=== PATIENT | female | born 1945 | race Caucasian/White ===

== ENCOUNTER 2016-06-27 06:16 | Inpatient (IN) | payer BC, OTHER ==
[2016-05-07 10:30] VITALS: BMI 42.0
--- NOTE | 2016-05-07 11:12 | PAT Medication Instructions ---
Service Date May 07, 2016. Current Home Medication List Amoxicillin (Amoxil), 500 MG PO TID Aspirin (Aspirin 81), 81 TAB PO QAM Ezetimibe (Zetia), 10 MG PO QAM Glatiramer Acetate (Copaxone), 1 DOSE SQ 3XWK Naproxen (Naprosyn), 500 MG PO BID Ranitidine Hcl (Zantac), 150 MG PO BID [Dr. Daphnie Bowers], 1 PKT PO QAM Medication Instructions For Your Scheduled Surgery Amoxicillin (Amoxil), 500 MG PO TID (will finish prior to surgery) Glatiramer Acetate (Copaxone), 1 DOSE SQ 3XWK (check with neurologist for instructions) Naproxen (Naprosyn), 500 MG PO BID (per Dr. San's instructions) Dr. Daphnie Bowers 1 PKT PO QAM (take as directed) - Take the following medications the morning of surgery with a sip of water: Ranitidine Hcl (Zantac), 150 MG PO BID Ezetimibe (Zetia), 10 MG PO QAM Aspirin (Aspirin 81), 81 TAB PO QAM - Take the following medications as scheduled the night before surgery: Ranitidine Hcl (Zantac), 150 MG PO BID If you have any questions please call us at [phone] or [phone] ( [facility]) or [phone]
[2016-05-07 12:17] LABS: BASO % 0.3 %; BASO ABS # 0.02 K/uL (0-0.2); COMPLETE YES; EOS % 1.3 %; HEMATOCRIT 38.5 % (37-47); IG% 0.1 %; LYMPH % 31.6 %; LYMPH ABS # 2.16 K/uL (1.2-3.4); MEAN CELL VOLUME 86.3 fL (80-100); MEAN CORPUSCULAR HGB CONC 32.5 g/dl (32-36); MEAN PLATELET VOLUME 9.8 fL (7.4-10.4); MONO % 9.5 %; NEUT % 57.2 %; PLATELET COUNT 332 K/uL (130-400); RED BLOOD COUNT 4.46 M/uL (4.2-5.4); WHITE BLOOD COUNT 6.84 K/uL (4.8-10.8)
[2016-05-07 12:32] LABS: PARTIAL THROMBOPLASTIN RATIO 1.1; PROTHROMBIN TIME (PATIENT) 10.5 SECONDS (9.0-12.0)
[2016-05-07 12:34] LABS: URINE APPEARANCE CLEAR (CLEAR); URINE BILIRUBIN NEG (NEG); URINE COLOR YELLOW; URINE NITRITE NEG (NEG); URINE SPECIFIC GRAVITY 1.015 (1.000-1.030); UROBILINOGEN NEG (NEG)
--- NOTE | 2016-05-07 12:35 | DIAGNOSTIC IMAGING REPORT ---
CHEST PREADMISSION(PA/LAT) CLINICAL HISTORY: Preoperative evaluation COMPARISON STUDY: Chest radiograph March 28, 2013 FINDINGS: Lung volumes are normal. Linear left basilar opacity is suggestive of atelectasis. There is a large hiatal hernia. Mild cardiomegaly is noted. There is no evidence of pulmonary edema. There is no consolidation to suggest pneumonia. IMPRESSION: 1. No acute cardiopulmonary findings. 2. Mild cardiomegaly. 3. Moderate to large hiatal hernia. Electronically signed by: Kendall Rodriguez M.D. 05/07/2016 12:34 PM
[2016-05-07 12:40] LABS: MANUAL MICROSCOPIC REQUIRED? NO; REVIEW REQ? NO
[2016-05-07 12:49] LABS: BUN/CREATININE RATIO 16.3 (10-20); CREATININE 0.7 mg/dl (0.60-1.20); POTASSIUM 3.9 mmol/L (3.5-5.1)
[2016-05-07 12:54] LABS: ESTIMATED AVERAGE GLUCOSE 123 mg/dl; HA1C FLAG Normal (Normal)
[2016-05-07 13:36] LABS: CALCIUM 9.6 mg/dl (8.5-10.1)
--- NOTE | 2016-06-24 14:22 | HISTORY & PHYSICAL EXAMINATION ---
DATE OF ADMISSION: 06/27/2016 SUBJECTIVE AND CHIEF COMPLAINT: Left knee pain. HISTORY OF PRESENT ILLNESS: This is a patient who is treated conservatively for left knee osteoarthritis. She failed all conservative management of left knee. She is now being set up for a left total knee arthroplasty. PAST MEDICAL HISTORY: Hypercholesterolemia, multiple sclerosis, osteoarthritis, acid reflux, obesity. SOCIAL HISTORY: The patient denies alcohol and tobacco use. FAMILY HISTORY: Noncontributory. PAST SURGICAL HISTORY: Left and right bunion corrections, umbilical hernia repair, cholecystectomy, and also colonoscopy with a repaired bowel after a puncture during the colonoscopy. ALLERGIES: CRESTOR, ZOCOR, AND LIPITOR. CURRENT MEDICATIONS: Copaxone 20 mg 1 injection subQ daily, [place]-3 fish oil supplement p.o. daily, calcium plus vitamin D supplement 1 p.o. daily, glucosamine chondroitin p.o. daily, aspirin 81 mg p.o. daily, multivitamin p.o. daily, Zantac 150 mg 1 p.o. b.i.d., Zetia p.o. daily and Naprosyn p.o. b.i.d. p.r.n. pain. OBJECTIVE PHYSICAL EXAMINATION: GENERAL: The patient is alert and oriented x3. She is in no acute distress. She is a well-dressed, well-nourished 71-year-old female. Affect is appropriate. CARDIOVASCULAR: Heart has a regular rate without murmurs. LUNGS: Clear to auscultation bilateral. EXTREMITIES: Dorsalis pedis, posterior tib pulse +2/4. Cap refill is less than 2 seconds. LYMPHATIC: No evidence of any swollen lymph nodes. MUSCULOSKELETAL: The patient has a compensated gait favoring the left lower extremity. Upon inspection of the left knee, the patient is noted to have swelling noted of the knee. There is aljp-qs-[id number] effusion. There is no ecchymosis, no erythema noted. There is crepitation with passive and active range of motion. There is also tenderness elicited with range of motion as well as palpation of the medial and lateral joint spaces. She has decrease in strength secondary to pain. SKIN: There are no scars, rashes or ulcers noted. NEUROLOGIC: Sensation normal and intact distally left lower extremity. X-RAY EXAMINATION: Multiple views of the left knee demonstrate severe osteoarthritis of the left knee with subchondral sclerosis and spurring. ASSESSMENT AND DIAGNOSIS: Left knee arthritis. PLAN: Above assessment was discussed with the patient. At this time, it was recommended the patient undergo a left total knee arthroplasty. All potential risks, benefits, complications, alternatives and rehab have been discussed with the patient. At this time, she wishes to proceed with the surgery as indicated. Plan will be for aspirin 81 mg twice per day for 30 days, postoperative DVT prophylaxis. The patient will be scheduled for the surgery on 06/27/2016.
[~2016-06-27] VITALS: Ht 160 cm; Wt 109.1 kg
[2016-06-27] VITALS (7 sets, daily range): BP systolic 103–137; BP diastolic 63–75; PULSE 68–84; TEMP 36.4–36.7; O2SAT 96–99; Ht 160 cm; Wt 109.1 kg
[~2016-06-27 06:16] MED LIST: ACETAMINOPHEN 500 MG TAB PO SCH; AMOX500C3 PO; ASPI-435 PO; CEFAZOLIN 2000 MG/60 ML D5W 60 ML IV SCH; CeleBREX 200 MG CAP PO SCH; DEXAMETHASONE 4 MG TAB PO SCH; EZET10TA63 PO; FAMOTIDINE 20 MG TAB PO SCH; GABAPENTIN 300 MG CAP PO SCH; GLAT1INJ SQ; LACTATED RINGER'S 1000ML IV SCH; LACTATED RINGER'S 500 ML IV SCH; METOCLOPRAMIDE HCL 10 MG TAB PO SCH; NAPR-1169 PO; RANI150T3 PO; ROPIVACAINE 5MG/ML 30 ML 150 MG, BUPIVACAINE/EPINEPHR 0.5% MPF 30 ML, KETOROLAC TROMETH... INFIL SCH; [UNRECOGNIZED DRUG - REMARK] PO
[2016-06-27] MEDS ORDERED: BUPIVACAINE 0.5 % 5 MG/1 ML PF 10ML VIAL ONE (06:26)
[2016-06-27] MEDS ORDERED: ATROPINE SULFATE 0.1 MG/ML 5ML SYR IV PRN (07:00)
[2016-06-27] MEDS ORDERED: FENTANYL CITRATE INJ 50 MCG/1 ML 2 ML VIAL IV PRN (07:00)
[2016-06-27] MEDS ORDERED: EpHEDrine SULFATE INJ 50 MG/ML AMP IV PRN (07:00)
[2016-06-27] MEDS ORDERED: ONDANSETRON INJ 2 MG/ML 2 ML VIAL IV PRN ×2 (07:00→12:00)
[2016-06-27] MEDS ORDERED: FENTANYL CITRATE INJ 50 MCG/1 ML 2 ML VIAL ONE ×3 (07:03→12:01)
[2016-06-27] MEDS ORDERED: DEXAMETHASONE SOD INJ 4 MG/ML VIAL ONE (07:03)
[2016-06-27] MEDS ORDERED: LIDOCAINE HCL 2% 2 ML VIAL (20MG/ML) ONE (07:03)
[2016-06-27] MEDS ORDERED: ONDANSETRON INJ 2 MG/ML 2 ML VIAL ONE (07:03)
[2016-06-27] MEDS ORDERED: PROPOFOL IV EMULSION 10 MG/ML 20 ML VIAL IV ONE (07:03)
[2016-06-27] MEDS ORDERED: MIDAZOLAM HCL 1 MG/ML 2ML VIAL ONE (07:03)
[2016-06-27] MEDS ORDERED: NURSING VERBAL MED ORDER STA (07:24)
--- NOTE | 2016-06-27 07:35 | History & Physical Bridge Note ---
H&P Re-Evaluation Bridge Note: I have examined the patient, reviewed the History & Physical and in the interval since the performance of the History & Physical I have noted the following changes of clinical significance: No changes noted
[2016-06-27] MEDS ORDERED: ORTHO JOINT ANESTHETIC ONE (07:57)
[2016-06-27] MEDS: TRANEXAMIC ACID INJ 1,000 MG in SODIUM CHLORIDE 0.9% 100ML 100 ML IV SCH ×2 (08:37→13:15)
[2016-06-27] MEDS ORDERED: BUPIVACAINE 0.25% 30 ML VIAL ONE (08:52)
[2016-06-27] MEDS ORDERED: BACITRACIN 50000 UNIT VIAL IR ONE (10:22)
[2016-06-27] MEDS ORDERED: POVIDONE-IODINE OP SOLN 30 ML BTL TOP ONE (10:22)
--- NOTE | 2016-06-27 11:24 | [facility] Post Operative Brief Note ---
Immediate Operative Summary Operative Date Jun 27, 2016. Pre-Operative Diagnosis Left knee degenerative joint disease, Genu Valgum, Flexion Contracture, Osteoarthritis Post-Operative Diagnosis Left knee degenerative joint disease, Genu Valgum, Flexion Contracture, Osteoarthritis Procedure(s) Performed Left Total Knee Arthroplasty w/ Alejandra Foreman 2, Cemented Surgeon Dr. Dimas San [employer] Paralegal Surgeon(s) Enrique Pollock PA-C Estimated Blood Loss 20cc Findings See Dict Specimens A: Left knee bone and tissue Drains HV x 2 Anesthesia GLMA w/ Adductor canal block; Intraarticular Joint injection Complication(s) None Disposition Recovery Room / PACU
[2016-06-27] MEDS ORDERED: ZOLPIDEM TARTRATE 5 MG TAB PO PRN (12:00)
[2016-06-27] MEDS ORDERED: MoRPHine SULFATE 2 MG/ML CARP IV PRN (12:00)
[2016-06-27] MEDS ORDERED: DiphenhydrAMINE HCL 50 MG/ML VIAL IV PRN (12:00)
[2016-06-27] MEDS ORDERED: BISACODYL 10 MG SUPP PR PRN (12:00)
[2016-06-27] MEDS ORDERED: ALUMINUM/MAGNESIUM/SIMETH (MAALOX MAX) 30 ML UDC PO PRN (12:00)
--- NOTE | 2016-06-27 12:12 | DIAGNOSTIC IMAGING REPORT ---
LEFT KNEE 2 VIEWS History: Left total knee arthroplasty. Degenerative arthritis. Postop. FINDINGS: The patient is status post a left total knee arthroplasty. The hardware is intact. No fracture or dislocation. Skin nabil and surgical drains are in place. IMPRESSION: Left total knee arthroplasty. No evidence for hardware complication. Electronically signed by: Victorino Mccoy M.D. 06/27/2016 12:11 PM Dictated Date/Time: 06/27/2016 12:10 PM
--- NOTE | 2016-06-27 12:27 | Anesthesiology Progress Note ---
Anesthesia Post Op Note Date & Time Jun 27, 2016 at 12:27 Vital Signs Pain Intensity: 3 Vital Signs Past 12 Hours Date Time Temp Pulse Resp B/P Pulse Ox O2 Delivery O2 Flow Rate FiO2 06/27/16 12:18 136/61 06/27/16 12:16 79 16 98 06/27/16 12:16 78 16 06/27/16 12:13 133/67 06/27/16 12:11 79 16 98 06/27/16 12:11 79 16 06/27/16 12:10 81 16 100 06/27/16 12:10 82 16 06/27/16 12:08 135/68 06/27/16 12:05 74 13 100 06/27/16 12:05 76 13 06/27/16 12:03 143/63 06/27/16 12:00 82 19 100 06/27/16 12:00 84 19 06/27/16 11:58 138/63 06/27/16 11:55 84 14 06/27/16 11:55 84 14 100 06/27/16 11:53 132/65 06/27/16 11:50 37.4 88 18 144/68 98 Mask 10 06/27/16 11:50 89 16 99 06/27/16 11:50 89 16 06/27/16 06:53 36.6 84 20 131/63 96 Room Air Notes Mental Status: alert / awake / arousable, participated in evaluation Pt Amnestic to Procedure: Yes Nausea / Vomiting: adequately controlled Pain: adequately controlled Airway Patency, RR, SpO2: stable & adequate BP & HR: stable & adequate Hydration State: stable & adequate Anesthetic Complications: no major complications apparent
--- NOTE | 2016-06-27 12:59 | OPERATIVE REPORT ---
DATE OF OPERATION: 06/27/2016 PREOPERATIVE DIAGNOSES: 1. Left knee degenerative joint disease. 2. Genu valgum. 3. Flexion contracture of the left knee. POSTOPERATIVE DIAGNOSES: Same. PROCEDURE: Left total knee arthroplasty using a [employer] II knee size 8 femur, size 6 tibial component, 12-mm posterior stabilized polyethylene and a 35-mm patella. SURGEON: Dr. San. ISO COORDINATOR: Enrique SULLIVAN, who was present for patient positioning, sterile prep and drape, management of retractors and instruments. He was present through the critical portions of the case including wound closure, application of sterile dressing and transport of the patient to recovery. ANESTHESIA: General LMA with adductor canal block and intraarticular left knee joint injection. SPECIMENS: Bone and tissue from the left knee. DRAINS: Hemovac x2. COMPLICATIONS: None. BLOOD LOSS: 20 mL. PERTINENT HISTORY: This is a 71-year-old female who had chronic progressive and ongoing left knee pain, degenerative arthritis and loss of function. This has been ongoing for several years. She attempted conservative management including anti-inflammatories, rest, use of a brace, use of an assistive device, shoewear modification, activity modification, steroid injections and viscosupplementation. She failed all measures. She had radiographic features consistent with severe degenerative joint disease with loss of joint space, marginal osteophytes, subchondral sclerosis, subchondral cysts, genu valgum and bone on bone arthropathy. She was scheduled for surgery as indicated. DESCRIPTION OF PROCEDURE: The patient was taken to the Operating Suite and placed supine on the Operating Room table after the patient had been administered spinal anesthetic and femoral nerve block. The patient was anesthetized and LMA was placed . The Proper operative site was identified and the consent was reviewed. The tourniquet was placed high on the left lower extremity. Left lower extremity was then sterilely prepped and draped in the usual fashion. Elevated and exsanguinated with an Esmarch bandage. Tourniquet inflated to 350 mmHg. Next a midline 10-blade scalpel incision was made directly over the middle one-third of the patella extending to the level of the tibial tubercle. The incision was deepened through the subcutaneous tissue and meticulous hemostasis with electrocautery. Full-thickness skin flaps were developed taking care to avoid neurovascular bundles. Next, median parapatellar capsular incision was made 10-blade scalpel after the superior medial corner had been marked with a marking pen for later reapproximation. Next, patella was everted. Soft tissue releases were performed of the knee including along the anterior medial corner to the level of the MCL which was protected and released adjacent to the MCL with Huertas elevator. Fat pad was resected anteriorly and small half muñiz portion of tissue was resected at the superior margin of the dermal articular surface. Next, the patella thickness was measured with caliper and held in everted position with Kevin. Next, sagittal saw was used to make orthogonal cuts to the level of the patellar nose. Caliper was used to remeasure the patella and the appropriate sized patellar button, in this case size 35 mm felt to be most appropriate. The alignment guide was then put in place. Peg holes were drilled and alignment guide was then removed. Next, the femoral cutting block was placed in the distal aspect of the femur and pinned in place. Next the distal femoral cut was made based off the patient's anatomy and MRI patient matched cutting block. Next, a size 8 distal 4-in-1 cutting block was tamped in place then stabilized with pins. Next, the appropriate soft tissue retraction was made and anterior chamfer and posterior chamfer cuts were made with the sagittal saw. Next, the 4-in-1 cutting block was then removed followed by removal of all bone fragments. Next, attention was then directed toward the proximal tibia. Blunt Yara was placed posterior to the tibia to protract it anteriorly and median and lateral sharp Renetta retractors were placed. Soft tissue and portion of the menisci were then resected at this time and MRI matched proximal tibial cutting block was then pinned in place and proximal tibial cut was made with sagittal saw. Alignment guide was removed. Pins were removed and the proximal fragment of the tibia was then sharply excised and removed. Next, proximal tibial tray trial size 6 was then pinned in place and this was felt to be well matched for the patient's anatomy, pinned in place and keel punch was then utilized with balwinder. Keel punch was then removed and cervical laminar care team assistant was then placed in the medial compartment. The lateral compartment was then inspected for osteophytes and soft tissue impingement. There was found to be none. I then switched to the lateral compartment and medial compartment was then debrided of any soft tissue impingement. Next the laminar care team assistant was removed and the femoral trial, in this case size 8 was then malleted in place, pinned and then femoral notch milling guide was then placed anteriorly. This was then reamed and then punched with sharp punch and mallet. Next, the distal aspect of the femur was then inserted in notch guide and size 12-mm poly was inserted, reduced. Patellar button was then placed in trial and range of motion was performed. Next after range of motion and stability test was performed the implants were found to be appropriate size. Trials were all removed. The posterior capsule was injected with Orthomix. Next the joint was then cleansed with pulsatile lavage using approximately 3 liters normal saline with Bacitracin additive. Next all bony surfaces were the suctioned and drained and standard cementing technique was performed with Palacos G cement and all excess cement was then removed from around the implant site. A 12-mm posterior stabilized polyethylene bearing was implanted and checked for stability. The patellar button was then cemented in place and held in place with patellar clamp. Next, double lumen 10 Portuguese Hemovac drain was then placed and exiting anterolaterally and the capsule was closed using interrupted #1 Vicryl sutures. The dermis was closed using buried interrupted 2-0 Vicryl and the skin closed with skin nabil. A sterile compressive dressing was applied from the toes to the groin and overwrapped with Cristobal wrap. Tourniquet was released. The patient was awakened and taken to recovery in stable condition. I attest to the content of the Intraoperative Record and any orders documented therein. Any exceptions are noted below. EDELMIRA
[2016-06-27] MEDS ORDERED: MoRPHine SULFATE 4 MG/ML 1 ML CARP\\VIAL IV PRN (13:45)
[2016-06-27] MEDS ORDERED: MoRPHine SULFATE 10 MG/ML CARP/VIAL IV PRN (13:45)
[2016-06-27] MEDS: D5W AND 1/2NSS + 20MEQ KCL 1,000 ML IV SCH ×2 (13:46→23:43)
[2016-06-27] MEDS: KETOROLAC TROMETHAMINE 15 MG/ML VIAL IV. SCH ×2 (14:12→20:37)
[2016-06-27] MEDS: ACETAMINOPHEN 500 MG TAB PO SCH ×2 (14:12→22:16)
[2016-06-27] MEDS: FERROUS GLUCONATE 324 MG TAB PO SCH (17:45)
[2016-06-27] MEDS: CEFAZOLIN IV 2,000 MG in DEXTROSE 5% 50ML 50 ML IV SCH (17:46)
[2016-06-27] MEDS: RANITIDINE HCL 150 MG TAB PO SCH (20:38)
[2016-06-27] MEDS: SENNA 8.6 MG TAB PO SCH (20:38)
[2016-06-27] MEDS: ASPIRIN 81 MG ECTAB PO SCH (20:39)
[2016-06-27] MEDS: OXYCODONE HCL 10 MG TABCR (OXYCONTIN) PO SCH (20:39)
[2016-06-27] MEDS: DOCUSATE SODIUM 100 MG CAP PO SCH (20:39)
[2016-06-28] VITALS (13 sets, daily range): BP systolic 98–167; BP diastolic 57–85; PULSE 60–88; TEMP 36.4–37.1; O2SAT 93–100
[2016-06-28] MEDS: CEFAZOLIN IV 2,000 MG in DEXTROSE 5% 50ML 50 ML IV SCH (02:15)
[2016-06-28] MEDS: KETOROLAC TROMETHAMINE 15 MG/ML VIAL IV. SCH ×2 (02:17→08:27)
[2016-06-28] MEDS: ACETAMINOPHEN 500 MG TAB PO SCH ×4 (05:37→18:45)
[2016-06-28 06:16] LABS: MEAN CELL VOLUME 81.7 fL (80-100); MEAN CORPUSCULAR HEMOGLOBIN 25.5 pg (25-34); MEAN CORPUSCULAR HGB CONC 31.2 g/dl (32-36); MEAN PLATELET VOLUME 8.9 fL (7.4-10.4); PLATELET COUNT 217 K/uL (130-400); RED BLOOD COUNT 3.06 M/uL (4.2-5.4); WHITE BLOOD COUNT 12.12 K/uL (4.8-10.8)
[2016-06-28 06:31] LABS: BUN/CREATININE RATIO 14.2 (10-20); CREATININE 0.8 mg/dl (0.60-1.20); POTASSIUM 4.4 mmol/L (3.5-5.1)
--- NOTE | 2016-06-28 07:55 | Orthopedic Progress Note ---
Orthopedic Progress Note Date of Service Jun 28, 2016. Subjective Post OP Day: 1 Reports: feeling well, Denies: SOB, calf pain, chest pain, light headedness, nausea / vomiting Objective calves soft nontender, N/V intact, dressing C/D/I, A&O x3, toes mobile, hemovac drainage (225/50CC PER SHIFT) Date Time Temp Pulse Resp B/P Pulse Ox O2 Delivery O2 Flow Rate FiO2 06/28/16 07:29 Room Air 06/28/16 03:36 36.9 70 14 105/63 96 Room Air 06/28/16 00:01 36.4 60 14 98/60 96 Room Air 06/27/16 23:45 Room Air 06/27/16 20:05 36.7 70 16 103/65 96 Room Air 06/27/16 15:45 36.4 68 16 118/71 96 Room Air 06/27/16 15:35 Room Air 06/27/16 14:45 36.4 72 16 137/75 97 Room Air 06/27/16 13:49 76 120/73 97 Nasal Cannula 06/27/16 13:15 36.4 78 16 133/74 98 2.0 06/27/16 12:45 Nasal Cannula 2.0 06/27/16 12:45 Nasal Cannula 2.0 06/27/16 12:45 36.7 80 12 111/73 99 Nasal Cannula 2.0 06/27/16 12:35 76 16 99 06/27/16 12:35 75 16 06/27/16 12:33 132/61 06/27/16 12:30 79 16 06/27/16 12:30 76 16 100 06/27/16 12:29 37.1 06/27/16 12:28 137/60 06/27/16 12:25 75 17 99 06/27/16 12:25 76 17 06/27/16 12:24 77 16 96 06/27/16 12:24 75 16 06/27/16 12:23 135/58 06/27/16 12:19 80 16 06/27/16 12:19 80 16 99 06/27/16 12:18 136/61 06/27/16 12:16 79 16 98 06/27/16 12:16 78 16 06/27/16 12:13 133/67 06/27/16 12:11 79 16 98 06/27/16 12:11 79 16 06/27/16 12:10 81 16 100 06/27/16 12:10 82 16 06/27/16 12:08 135/68 06/27/16 12:05 74 13 100 06/27/16 12:05 76 13 06/27/16 12:03 143/63 06/27/16 12:00 82 19 100 06/27/16 12:00 84 19 06/27/16 11:58 138/63 06/27/16 11:55 84 14 06/27/16 11:55 84 14 100 06/27/16 11:53 132/65 06/27/16 11:50 37.4 88 18 144/68 98 Mask 10 06/27/16 11:50 89 16 99 06/27/16 11:50 89 16 Laboratory Results 24 Hours: Test 06/28/16 06:00 Hematocrit 25.0 % Hemoglobin 7.8 g/dL Assessment & Plan Assessment: POD#1 SP LEFT TKA ACUTE BLOOD LOSS ANEMIA Plan: TRANSFUSE 1 UNIT Inhouse Planning Pain Management: Celebrex, Oxycontin, PO Tylenol, Oxy IR DVT Prophylaxis: TEDs, SCDs, ASA Discharge Planning Discharge Planning: residential facility (REQUESTING REFERRAL TO [facility])
[2016-06-28] MEDS ORDERED: ACETAMINOPHEN 325 MG TAB PO SCH (08:00)
[2016-06-28] MEDS: ASPIRIN 81 MG ECTAB PO SCH ×2 (08:27→20:32)
[2016-06-28] MEDS: FERROUS GLUCONATE 324 MG TAB PO SCH ×3 (08:27→17:22)
[2016-06-28] MEDS: DOCUSATE SODIUM 100 MG CAP PO SCH ×2 (08:27→20:32)
[2016-06-28] MEDS: OXYCODONE HCL 10 MG TABCR (OXYCONTIN) PO SCH ×2 (08:27→20:31)
[2016-06-28] MEDS: MULTIVITAMIN TAB PO SCH (08:27)
[2016-06-28] MEDS: EZETIMIBE 10MG TAB PO SCH (08:27)
[2016-06-28] MEDS: RANITIDINE HCL 150 MG TAB PO SCH ×2 (08:27→20:31)
[2016-06-28] MEDS: PANTOprazole SOD 40 MG TAB PO SCH (09:08)
[2016-06-28] MEDS: D5W AND 1/2NSS + 20MEQ KCL 1,000 ML IV SCH (10:00)
[2016-06-28] MEDS: MAGNESIUM HYDROXIDE SUSP 30 ML UDC PO PRN ×2 (13:46→14:51)
[2016-06-28] MEDS ORDERED: NURSING VERBAL MED ORDER ONE (16:45)
[2016-06-28] MEDS ORDERED: TAP WATER ENEMA PR SCH (17:00)
[2016-06-28] MEDS: SENNA 8.6 MG TAB PO SCH (20:32)
[2016-06-29] MEDS: ACETAMINOPHEN 500 MG TAB PO SCH ×3 (05:27→21:06)
[2016-06-29 05:36] LABS: BASO % 0.1 %; BASO ABS # 0.01 K/uL (0-0.2); EOS % 0.6 %; HEMATOCRIT 28.2 % (37-47); IG% 0.1 %; LYMPH % 14.6 %; LYMPH ABS # 2.03 K/uL (1.2-3.4); MEAN CELL VOLUME 82.9 fL (80-100); MEAN CORPUSCULAR HEMOGLOBIN 26.2 pg (25-34); MEAN CORPUSCULAR HGB CONC 31.6 g/dl (32-36); MEAN PLATELET VOLUME 9.3 fL (7.4-10.4); MONO % 15.1 %; NEUT % 69.5 %; PLATELET COUNT 241 K/uL (130-400); WHITE BLOOD COUNT 13.94 K/uL (4.8-10.8)
[2016-06-29] MEDS: OXYCODONE HCL IR 5 MG TAB (IMMEDIATE RELEASE) PO PRN (05:44)
[2016-06-29 05:59] LABS: COMPLETE YES
[2016-06-29 07:39] VITALS: BP 115/73; PULSE 82; TEMP 37.1; O2SAT 91
--- NOTE | 2016-06-29 08:15 | Orthopedic Progress Note ---
Orthopedic Progress Note Date of Service Jun 29, 2016. Subjective Post OP Day: 2 Reports: feeling well, Denies: SOB, calf pain, chest pain, light headedness, nausea / vomiting Objective calves soft nontender, N/V intact, dressing C/D/I, A&O x3, toes mobile Date Time Temp Pulse Resp B/P Pulse Ox O2 Delivery O2 Flow Rate FiO2 06/29/16 07:39 37.1 82 16 115/73 91 Room Air 06/28/16 23:53 37.0 86 18 103/57 93 06/28/16 19:00 Room Air 06/28/16 15:45 36.7 71 16 152/68 93 Room Air 06/28/16 13:45 36.4 74 18 148/80 06/28/16 13:21 88 18 167/85 97 Room Air 06/28/16 12:39 37.1 81 18 154/76 06/28/16 12:16 36.9 66 18 134/78 96 06/28/16 11:59 36.9 75 18 132/74 100 06/28/16 11:44 36.8 67 18 132/73 06/28/16 11:20 36.8 75 18 144/75 99 Room Air Laboratory Results 24 Hours: Test 06/29/16 05:15 White Blood Count 13.94 K/uL Red Blood Count 3.40 M/uL Hemoglobin 8.9 g/dL Hematocrit 28.2 % Mean Corpuscular Volume 82.9 fL Mean Corpuscular Hemoglobin 26.2 pg Mean Corpuscular Hemoglobin Concent 31.6 g/dl Platelet Count 241 K/uL Mean Platelet Volume 9.3 fL Neutrophils (%) (Auto) 69.5 % Lymphocytes (%) (Auto) 14.6 % Monocytes (%) (Auto) 15.1 % Eosinophils (%) (Auto) 0.6 % Basophils (%) (Auto) 0.1 % Neutrophils # (Auto) 9.69 K/uL Lymphocytes # (Auto) 2.03 K/uL Monocytes # (Auto) 2.10 K/uL Eosinophils # (Auto) 0.09 K/uL Basophils # (Auto) 0.01 K/uL Assessment & Plan Assessment: POD#2 SP LEFT TKA ACUTE BLOOD LOSS ANEMIA Plan: TRANSFUSED 1 UNIT 06/28/16. HGB IMPROVED TO 8.9 ENCOURAGE PO H2O TRANSFER TO [facility] CONT DVT PROPHYLAXIS Inhouse Planning Pain Management: Celebrex, Oxycontin, PO Tylenol, Oxy IR DVT Prophylaxis: TEDs, SCDs, ASA Discharge Planning Discharge Planning: nursing home facility (REQUESTING REFERRAL TO [facility])
[2016-06-29] MEDS: FERROUS GLUCONATE 324 MG TAB PO SCH ×3 (08:25→17:51)
[2016-06-29] MEDS: ASPIRIN 81 MG ECTAB PO SCH ×2 (08:25→21:06)
[2016-06-29] MEDS: PANTOprazole SOD 40 MG TAB PO SCH (08:25)
[2016-06-29] MEDS: EZETIMIBE 10MG TAB PO SCH (08:25)
[2016-06-29] MEDS: DOCUSATE SODIUM 100 MG CAP PO SCH ×2 (08:25→21:06)
[2016-06-29] MEDS: RANITIDINE HCL 150 MG TAB PO SCH ×2 (08:25→21:06)
[2016-06-29] MEDS: MULTIVITAMIN TAB PO SCH (08:25)
[2016-06-29] MEDS: OXYCODONE HCL 10 MG TABCR (OXYCONTIN) PO SCH ×2 (08:25→21:07)
[2016-06-29 15:27] VITALS: BP 120/70; PULSE 86; TEMP 37.6; O2SAT 94
[2016-06-29] MEDS: SENNA 8.6 MG TAB PO SCH (21:05)
[2016-06-29 22:51] VITALS: BP 110/60; PULSE 85; TEMP 37.1; O2SAT 91
[2016-06-30] VITALS (7 sets, daily range): BP systolic 113–153; BP diastolic 73–81; PULSE 79–95; TEMP 36.4–37.1; O2SAT 94–98
[2016-06-30] MEDS: ACETAMINOPHEN 500 MG TAB PO SCH ×2 (04:59→14:18)
[2016-06-30] MEDS: OXYCODONE HCL IR 5 MG TAB (IMMEDIATE RELEASE) PO PRN (05:00)
[2016-06-30 05:25] LABS: BASO % 0.2 %; BASO ABS # 0.02 K/uL (0-0.2); EOS % 2.6 %; HEMATOCRIT 27.5 % (37-47); IG% 0.2 %; LYMPH % 16.5 %; LYMPH ABS # 2.16 K/uL (1.2-3.4); MEAN CELL VOLUME 84.4 fL (80-100); MEAN CORPUSCULAR HEMOGLOBIN 26.7 pg (25-34); MEAN CORPUSCULAR HGB CONC 31.6 g/dl (32-36); MEAN PLATELET VOLUME 9.7 fL (7.4-10.4); MONO % 12.8 %; NEUT % 67.7 %; PLATELET COUNT 249 K/uL (130-400); RED BLOOD COUNT 3.26 M/uL (4.2-5.4); WHITE BLOOD COUNT 13.12 K/uL (4.8-10.8)
[2016-06-30 06:17] LABS: COMPLETE YES
[2016-06-30] MEDS: PANTOprazole SOD 40 MG TAB PO SCH (07:37)
[2016-06-30] MEDS: ASPIRIN 81 MG ECTAB PO SCH (07:37)
[2016-06-30] MEDS: OXYCODONE HCL 10 MG TABCR (OXYCONTIN) PO SCH (07:37)
[2016-06-30] MEDS: EZETIMIBE 10MG TAB PO SCH (07:37)
[2016-06-30] MEDS: MULTIVITAMIN TAB PO SCH (07:37)
[2016-06-30] MEDS: FERROUS GLUCONATE 324 MG TAB PO SCH ×2 (07:38→12:35)
[2016-06-30] MEDS: DOCUSATE SODIUM 100 MG CAP PO SCH (07:38)
[2016-06-30] MEDS: RANITIDINE HCL 150 MG TAB PO SCH (07:38)
--- NOTE | 2016-06-30 07:41 | Orthopedic Progress Note ---
Orthopedic Progress Note Date of Service Jun 30, 2016. Subjective Post OP Day: 3 Reports: feeling well, pain controlled w PO medications, Denies: SOB, calf pain , chest pain, light headedness, nausea / vomiting Objective calves soft nontender, N/V intact, capillary refill less than 2 sec., dressing C /D/I, A&O x3, toes mobile Date Time Temp Pulse Resp B/P Pulse Ox O2 Delivery O2 Flow Rate FiO2 06/30/16 07:03 Room Air 06/30/16 06:33 36.8 95 20 118/73 95 Room Air 06/29/16 22:51 37.1 85 18 110/60 91 Room Air 06/29/16 19:20 Room Air 06/29/16 15:27 37.6 86 18 120/70 94 Room Air 06/29/16 08:18 Room Air Laboratory Results 24 Hours: Test 06/30/16 04:35 White Blood Count 13.12 K/uL Red Blood Count 3.26 M/uL Hemoglobin 8.7 g/dL Hematocrit 27.5 % Mean Corpuscular Volume 84.4 fL Mean Corpuscular Hemoglobin 26.7 pg Mean Corpuscular Hemoglobin Concent 31.6 g/dl Platelet Count 249 K/uL Mean Platelet Volume 9.7 fL Neutrophils (%) (Auto) 67.7 % Lymphocytes (%) (Auto) 16.5 % Monocytes (%) (Auto) 12.8 % Eosinophils (%) (Auto) 2.6 % Basophils (%) (Auto) 0.2 % Neutrophils # (Auto) 8.89 K/uL Lymphocytes # (Auto) 2.16 K/uL Monocytes # (Auto) 1.68 K/uL Eosinophils # (Auto) 0.34 K/uL Basophils # (Auto) 0.02 K/uL Assessment & Plan Assessment: POD#3 SP LEFT TKA ACUTE BLOOD LOSS ANEMIA--stable Hgb today Plan: TRANSFUSED 1 UNIT 06/28/16. HGB IMPROVED TO 8.9 ENCOURAGE PO H2O TRANSFER TO [facility] TODAY CONT DVT PROPHYLAXIS Inhouse Planning Pain Management: Celebrex, Oxycontin, PO Tylenol, Oxy IR DVT Prophylaxis: TEDs, SCDs, ASA Discharge Planning Discharge Planning: [facility] facility ([facility] today) Pain Management: Celebrex, Oxycontin, PO Tylenol, Oxy IR DVT Prophylaxis: TEDs, ASA Therapy: Physical Therapy
--- NOTE | 2016-06-30 07:42 | Anesthesiology Progress Note ---
Anesthesia Post Op Note Date & Time Jun 30, 2016 at 07:41 Vital Signs Pain Intensity: 0.0 Vital Signs Past 12 Hours Date Time Temp Pulse Resp B/P Pulse Ox O2 Delivery O2 Flow Rate FiO2 06/30/16 07:03 Room Air 06/30/16 06:33 36.8 95 20 118/73 95 Room Air 06/29/16 22:51 37.1 85 18 110/60 91 Room Air Notes Mental Status: alert / awake / arousable, participated in evaluation Pt Amnestic to Procedure: Yes Nausea / Vomiting: adequately controlled Pain: adequately controlled Airway Patency, RR, SpO2: stable & adequate BP & HR: stable & adequate Hydration State: stable & adequate Anesthetic Complications: no major complications apparent
[2016-06-30] MEDS ORDERED: CLB/200 PO (07:44)
[2016-06-30] MEDS ORDERED: ACET-1138 PO (07:44)
[2016-06-30] MEDS ORDERED: ASPEC81 PO (07:44)
[2016-06-30] MEDS ORDERED: ONDA8TAB6 PO (07:44)
[2016-06-30] MEDS ORDERED: RXC5 PO (07:44)
[2016-06-30] MEDS ORDERED: OXYSR10 PO (07:44)
--- NOTE | 2016-06-30 07:46 | Discharge Instructions ---
Discharge Instructions Admission Reason for Admission: Left Knee Osteoarthritis Discharge Discharge Diagnosis / Problem: left knee osteoarthritis Discharge Goals Goal(s): Decrease discomfort, Improve function Activity Recommendations Activity Level: Up Ad Patti Therapies: Physical Therapy, Weight Bearing Status (Weightbear as tolerated on the left lower extremity), Occupational Therapy Weightbearing Status: Left weightbearing (as tolerated) Lifting Limitations: until after follow-up appointment Exercise/Sports Limitations: until after follow-up appointment Shower/Bathe: no limitations (Keep Silverlon dressing on for 7 days from time of application.) . Additional Information Patient informed of condition: Yes Advance Directives: Yes DNR: No Level of Care: Acute Rehab Communicable Disease: No Prognosis: Stable Bullard Catheter: No Instructions / Follow-Up Instructions / Follow-Up ACTIVITY RECOMMENDATIONS: SELF CARE INSTRUCTIONS AFTER TOTAL KNEE REPLACEMENT A. You may need to continue a physical therapy program after discharge from the hospital. There are several options available to you. Your doctor will assist you in selecting the best one for you. 1. An out-patient facility 2 to 3 times a week for therapy or home therapy. 2. Continue working on all exercises taught to you in the hospital. Your goals should be to increase bending of your knee to 90 degrees and beyond and to fully straighten your knee. B. You may progress at your own pace from walking with a walker or crutches to a cane; then to no assistive devices. C. Make walking a part of your daily routine. Be up as much as comfortable with rest periods throughout the day. Rest with leg elevation is very important. Use the ice wrap frequently for the first 3-4 weeks. D. There are no restrictions on activities. You may ride in a car, shop, participate in linoleum layer apprentice and all social activities. E. Wear the long elastic stockings (PRINCESS hose) 20 hours a day for one month after surgery. They can be removed several times a day for laundering and for a bath. F. Silverlon- This is a large adhesive bandage that contains silver ions. This helps your incision heal by fighting off bacteria and protecting it from the outside environment. You are permitted to shower with this dressing. This will remain on your incision for 7 days and then should be removed. Some visible blood or drainage through the dressing window is normal. If there is significant drainage or leaking noted before the 7 days notify your doctor's office immediately. Once removed, keep incision clean and dry. If there is any drainage or redness noted, please call your surgeon. SPECIAL CARE INSTRUCTIONS: VERY IMPORTANT TO READ AND REVIEW A. Take Coumadin, Xarelto, Aspirin or Lovenox (blood thinning medications) as directed by your doctor. If on Coumadin, have a pro-time (blood test) drawn according to your doctor's instructions. This will tell the doctor how well the Coumadin is thinning your blood. B. There are a few signs you need to watch for after you are home. Call [facility] if you notice any of the followin. Increased severe knee pain. Some pain is expected especially when you exercise. 2. Increased swelling in your leg or knee; pain or swelling of the calf muscle in either lower leg. 3. Any fluid drainage from the incision. 4. Shortness of breath or chest pain. C. Please call [facility] at if you have any concerns or questions about your operation or recovery. The doctor or his nurse will return your call promptly. D. You must take antibiotics before dental work, bladder, bowel or other surgery. Your doctor will provide you with a permanent care to carry describing this precaution. * CALL IF INCREASED PAIN, REDNESS, DRAINAGE OR FEVER GREATER THAT 101 F. * WEAR PRINCESS HOSE 20 HOURS PER DAY FOR 4 WEEKS. FOLLOW UP VISIT: If appointment is not already scheduled: Please call [facility] to make a follow-up appointment for 2 weeks after your surgery to have nabil removed at . Current Hospital Diet Patient's current hospital diet: Regular Diet Discharge Diet Recommended Diet: Regular Diet Procedures Procedures Performed: Left Total Knee Arthroplasty w/ Acosta and Nephew Journey 2, Cemented Pending Studies Studies pending at discharge: no Laboratory Results Hemoglobin A1c Test 05/07/16 11:20 Range/Units Estimated Average Glucose 123 mg/dl Hemoglobin A1c 5.9 H 4.5-5.6 % Medical Emergencies . Who to Call and When: Medical Emergencies: If at any time you feel your situation is an emergency, please call 911 immediately. . Non-Emergent Contact Non-Emergency issues call your: Surgeon Call Non-Emergent contact if: temperature is above 101, your pain is not controlled, your pain is worsening, wound has increased drainage, wound has increased redness, wound has increased pain . . "Provider Documentation" section prepared by Lev Alvarado. Core Measure Problem Core Measures: None
--- NOTE | 2016-06-30 20:01 | Discharge Instructions ---
Discharge Instructions Admission Reason for Admission: Left Knee Osteoarthritis Discharge Discharge Diagnosis / Problem: Left knee osteoarthritis Discharge Goals Goal(s): Decrease discomfort, Improve function Activity Recommendations Activity Limitations: as noted below Lifting Limitations: until after follow-up appointment Exercise/Sports Limitations: until after follow-up appointment May Resume Sexual Activity: when tolerated Shower/Bathe: no limitations (Keep Silverlon dressing in place for 7 days.) Driving or Machine Use: Until cleared by Dr. San's clinic. Weightbearing Status: Left weightbearing (as tolerated) . Instructions / Follow-Up Instructions / Follow-Up ACTIVITY RECOMMENDATIONS: SELF CARE INSTRUCTIONS AFTER TOTAL KNEE REPLACEMENT A. You may need to continue a physical therapy program after discharge from the hospital. There are several options available to you. Your doctor will assist you in selecting the best one for you. 1. An out-patient facility 2 to 3 times a week for therapy or home therapy. 2. Continue working on all exercises taught to you in the hospital. Your goals should be to increase bending of your knee to 90 degrees and beyond and to fully straighten your knee. B. You may progress at your own pace from walking with a walker or crutches to a cane; then to no assistive devices. C. Make walking a part of your daily routine. Be up as much as comfortable with rest periods throughout the day. Rest with leg elevation is very important. Use the ice wrap frequently for the first 3-4 weeks. D. There are no restrictions on activities. You may ride in a car, shop, participate in hostel manager and all social activities. E. Wear the long elastic stockings (PRINCESS hose) 20 hours a day for one month after surgery. They can be removed several times a day for laundering and for a bath. F. Silverlon- This is a large adhesive bandage that contains silver ions. This helps your incision heal by fighting off bacteria and protecting it from the outside environment. You are permitted to shower with this dressing. This will remain on your incision for 7 days and then should be removed. Some visible blood or drainage through the dressing window is normal. If there is significant drainage or leaking noted before the 7 days notify your doctor's office immediately. Once removed, keep incision clean and dry. If there is any drainage or redness noted, please call your surgeon. SPECIAL CARE INSTRUCTIONS: VERY IMPORTANT TO READ AND REVIEW A. Take Coumadin, Xarelto, Aspirin or Lovenox (blood thinning medications) as directed by your doctor. If on Coumadin, have a pro-time (blood test) drawn according to your doctor's instructions. This will tell the doctor how well the Coumadin is thinning your blood. B. There are a few signs you need to watch for after you are home. Call [facility] if you notice any of the followin. Increased severe knee pain. Some pain is expected especially when you exercise. 2. Increased swelling in your leg or knee; pain or swelling of the calf muscle in either lower leg. 3. Any fluid drainage from the incision. 4. Shortness of breath or chest pain. C. Please call [facility] at if you have any concerns or questions about your operation or recovery. The doctor or his nurse will return your call promptly. D. You must take antibiotics before dental work, bladder, bowel or other surgery. Your doctor will provide you with a permanent care to carry describing this precaution. * CALL IF INCREASED PAIN, REDNESS, DRAINAGE OR FEVER GREATER THAT 101 F. * WEAR PRINCESS HOSE 20 HOURS PER DAY FOR 4 WEEKS. FOLLOW UP VISIT: If appointment is not already scheduled: Please call [facility] to make a follow-up appointment for 2 weeks after your surgery to have nabil removed at . Current Hospital Diet Patient's current hospital diet: Regular Diet Discharge Diet Recommended Diet: Regular Diet Procedures Procedures Performed: Left Total Knee Arthroplasty w/ Acosta and Nephew Ahsan 2, Cemented Pending Studies Studies pending at discharge: no Laboratory Results Hemoglobin A1c Test 05/07/16 11:20 Range/Units Estimated Average Glucose 123 mg/dl Hemoglobin A1c 5.9 H 4.5-5.6 % Medical Emergencies . Who to Call and When: Medical Emergencies: If at any time you feel your situation is an emergency, please call 911 immediately. . Non-Emergent Contact Non-Emergency issues call your: Surgeon Call Non-Emergent contact if: temperature is above 101, your pain is not controlled, your pain is worsening, wound has increased drainage, wound has increased redness, wound has increased pain . "Provider Documentation" section prepared by Lev Alvarado. VTE Core Measure Inpt VTE Proph given/why not?: Other Anticoagulation (Aspirin 81 mg every 12 hours for 30 days), TSergei Macielings
--- NOTE | 2016-07-02 11:35 | DISCHARGE SUMMARY ---
DISCHARGE DIAGNOSIS: Degenerative joint disease left knee. SECONDARY DIAGNOSES: Hypercholesterolemia, multiple sclerosis, osteoarthritis, gastroesophageal reflux disease, obesity. CONSULTS: None. COMPLICATIONS: None. PROCEDURES: Left total knee arthroplasty performed by Dr. San on 06/27/2016. BRIEF HISTORY: As dictated in history and physical. HOSPITAL SUMMARY: The patient was admitted on the above-noted date and had the above-noted surgery performed which she tolerated well. On her first postoperative day, she was feeling well and had no complaints. Calves were soft, nontender, neurovascularly intact. Dressings clean, dry and intact. Toes were mobile. Vital signs were stable, she was afebrile. Hemoglobin was 7.8 and she was transfused 1 unit of PRBCs. She was started on physical therapy protocol and continued on DVT prophylaxis and pain management. Plans were for her to go to a fpc facility post-discharge, for which case management was consulted and instructed to arrange for plans for this. She continued to remain stable over second postoperative day and was continued on her PT protocol. Hemoglobin was 8.9 post-transfusion, vital signs remaining stable, and by her third postoperative day, she continued to remain stable. Her pain was controlled. Hemoglobin was stable. Calves were soft and nontender, neurovascularly intact. Dressings were clean, dry and intact. Toes were mobile. It was felt that she could be transferred to fpc facility for further physical therapy and care. For further review, please see chart. LABORATORY AND X-RAY DATA: As per chart. DISCHARGE INSTRUCTIONS: The patient was discharged to fpc facility on 06/30/2016. DIET: Regular. ACTIVITY: Weightbearing as tolerated to left lower extremity. Follow TK instruction sheets and special care instructions as noted. The patient to have PT and OT protocols as per TKA protocol and follow up with Dr. San in 2 weeks. The patient to call for appointment if one has not been made for you. DISCHARGE MEDICATIONS: Acetaminophen 1000 mg p.o. q. 8 hours, aspirin 81 mg p.o. b.i.d., Celebrex 200 mg p.o. q. 12 hours, Zofran 8 mg p.o. q. 8 hours p.r.n., OxyContin 10 mg p.o. q. 12 hours, oxycodone 5-10 mg p.o. q. 4 hours p.r.n., Zetia 10 mg p.o. q.a.m., Copaxone 40 mg injection 1 dose subcu 3 times a week, Zantac [address]i.d., Dr. Eller vitamin pack 1 pack p.o. q.a.m. Once b.i.d. dosing of your aspirin is done in 30 days, resume your once daily dosing. Stop taking naproxen.
[2016-12-29] MEDS ORDERED: ACET-1256 PO (08:09)
[2016-12-29] MEDS ORDERED: FERR1TAB13 PO (08:09)
[2016-12-29] MEDS ORDERED: NAPR-1169 PO (08:09)
[2016-12-29] MEDS ORDERED: CALCCAP4 PO (08:09)
[2016-12-29] MEDS ORDERED: GLUC1CAP35 PO (08:09)
[2016-12-29] MEDS ORDERED: OMEG10007 PO (08:09)
[2016-12-29] MEDS ORDERED: MULT-506 PO (08:09)
[2016-12-29] MEDS ORDERED: CHOL100040 PO (08:09)
[2016-12-29] MEDS ORDERED: ASPI81TA28 PO (08:09)
== END 2016-06-30 18:20 | disposition home health service (06) | DRG 470 ==
LOC: ENRESERVDT → ENRESERVTM → C.ACU 06:16 → C.3E 07:10
PROVIDERS: ADMIT Orthopaedic Surgery Sports Medicine; ATTEND Orthopaedic Surgery Sports Medicine
PROC: 0SRD0J9 Replacement of Left Knee Joint with Synthetic Substitute, Cemented, Open Approach (ICD-10-PCS; principal; 2016-06-27 09:15)
DX: M17.12 Unilateral primary osteoarthritis, left knee (principal); D62 Acute posthemorrhagic anemia; E78.00 Pure hypercholesterolemia, unspecified; G35 Multiple sclerosis; K21.9 Gastro-esophageal reflux disease without esophagitis; E66.9 Obesity, unspecified; Z79.899 Other long term (current) drug therapy

== ENCOUNTER 2017-02-13 05:09 | Inpatient (IN) | payer BC, OTHER ==
[2016-12-29 08:09] VITALS: BMI 43.0
--- NOTE | 2016-12-29 08:42 | PAT Medication Instructions ---
Service Date Dec 29, 2016. Current Home Medication List Acetaminophen (Tylenol), 1,000 MG PO Q8 PRN for Pain Aspirin (Aspirin Ec), 81 MG PO QAM Calcium Carbonate-Cholecalcife (Calcium/Vitamin D3 600-400 mg-Unit), 1 CAP PO QAM Cholecalciferol (Vitamin D-1000), Unknown Dose PO BID Ezetimibe (Zetia), 10 MG PO QPM Ferrous Sulfate (Kp Ferrous Sulfate), 1 TAB PO 5PM Fish Oil ([place]-3), 1 CAP PO BID Glatiramer Acetate (Copaxone), 1 DOSE SQ 3XWK Rcjfqwxxepn-Ufzepvacmed-Nnk C- (Glucosamine Chondroitin), 1 CAP PO BID Multivitamin (Multivitamin), 1 TAB PO QAM Naproxen (Naprosyn), 375 MG PO BID Ranitidine Hcl (Zantac), 150 MG PO BID Medication Instructions For Your Scheduled Surgery - Check with surgeon/neurologist for instructions: Glatiramer Acetate (Copaxone), 1 DOSE SQ 3XWK - Check with surgeon for instructions: Naproxen (Naprosyn), 375 MG PO BID - Hold the following medications 2 weeks prior to surgery: Vpupqvxkkfs-Flnracxrqjn-Okl C- (Glucosamine Chondroitin), 1 CAP PO BID Fish Oil ([place]-3), 1 CAP PO BID - Hold the following medications the morning of surgery: Ranitidine Hcl (Zantac), 150 MG PO BID Multivitamin (Multivitamin), 1 TAB PO QAM Calcium Carbonate-Cholecalcife (Calcium/Vitamin D3 600-400 mg-Unit), 1 CAP PO QAM Cholecalciferol (Vitamin D-1000), Unknown Dose PO BID - Take the following medications the morning of surgery with a sip of water: Acetaminophen (Tylenol), 1,000 MG PO Q8 PRN for Pain (if needed) Aspirin (Aspirin Ec), 81 MG PO QAM (okay to continue per surgeon) - Take the following medications as scheduled the night before surgery: Ranitidine Hcl (Zantac), 150 MG PO BID Ferrous Sulfate (Kp Ferrous Sulfate), 1 TAB PO 5PM Ezetimibe (Zetia), 10 MG PO QPM Cholecalciferol (Vitamin D-1000), Unknown Dose PO BID Acetaminophen (Tylenol), 1,000 MG PO Q8 PRN for Pain (if needed) If you have any questions please call us at [phone] or [phone] or [phone]
[2016-12-29 11:01] LABS: BASO % 0.4 %; BASO ABS # 0.02 K/uL (0-0.2); COMPLETE YES; EOS % 2.4 %; IG% 0.2 %; LYMPH % 27.8 %; LYMPH ABS # 1.51 K/uL (1.2-3.4); MEAN CORPUSCULAR HEMOGLOBIN 27.8 pg (25-34); MEAN CORPUSCULAR HGB CONC 31.6 g/dl (32-36); MEAN PLATELET VOLUME 9.7 fL (7.4-10.4); MONO % 10.7 %; NEUT % 58.5 %; PLATELET COUNT 265 K/uL (130-400); WHITE BLOOD COUNT 5.43 K/uL (4.8-10.8)
[2016-12-29 11:04] LABS: URINE APPEARANCE CLEAR (CLEAR); URINE BILIRUBIN NEG (NEG); URINE COLOR DK YELLOW; URINE EPITHELIAL CELL AUTO 0-5 /lpf (0-5); URINE NITRITE NEG (NEG); UROBILINOGEN NEG (NEG); ZZUR CULT IF INDIC CLEAN CATCH NO
[2016-12-29 11:10] LABS: BUN/CREATININE RATIO 17.2 (10-20); CALCIUM 9.3 mg/dl (8.5-10.1); CREATININE 0.69 mg/dl (0.60-1.20); POTASSIUM 4.1 mmol/L (3.5-5.1)
[2016-12-29 11:11] LABS: PROTHROMBIN TIME (PATIENT) 10.5 SECONDS (9.0-12.0)
[2016-12-29 11:16] LABS: MANUAL MICROSCOPIC REQUIRED? NO; REVIEW REQ? YES
[2016-12-29 11:41] LABS: ESTIMATED AVERAGE GLUCOSE 126 mg/dl; HA1C FLAG Normal (Normal)
--- NOTE | 2017-02-12 17:55 | History and Physical ---
History & Physical Date Feb 12, 2017. Chief Complaint Right knee pain History of Present Illness The patient is a 71 year old female with complaints of right knee pain secondary to chronic osteoarthritis. She was treated conservatively however has failed all conservative management. She is now being set up for surgical tx. Past Medical/Surgical History Medical Problems: (1) Left knee DJD 2) Hyperlipidemia 3) Obesity 4) H/O gastritis 5) Iron deficiency anemia Past surgical hx: , cholecystectomy, hernia surgery, bilateral foot surgeries, left knee surgery. Allergies Coded Allergies: Statins (Verified Adverse Reaction, Severe, SEVERE MUSCLE ACHES/CRAMPS, 12/29/16) Home Medications Scheduled Aspirin (Aspirin Ec), 81 MG PO QAM Calcium Carbonate-Cholecalcife (Calcium/Vitamin D3 600-400 mg-Unit), 1 CAP PO QAM Cholecalciferol (Vitamin D-1000), Unknown Dose PO BID Ezetimibe (Zetia), 10 MG PO QPM Ferrous Sulfate (Kp Ferrous Sulfate), 1 TAB PO 5PM Fish Oil ([place]-3), 1 CAP PO BID Glatiramer Acetate (Copaxone), 1 DOSE SQ 3XWK Jtwostbsqjr-Viadjcppzvv-Eyv C- (Glucosamine Chondroitin), 1 CAP PO BID Multivitamin (Multivitamin), 1 TAB PO QAM Naproxen (Naprosyn), 375 MG PO BID Ranitidine Hcl (Zantac), 150 MG PO BID Scheduled PRN Acetaminophen (Tylenol), 1,000 MG PO Q8 PRN for Pain Physical Examination Skin: warm/dry, no rash Eyes: normal inspection ENT: normal ENT inspection Head: normocephalic, atraumatic Neck: supple, no adenopathy, trachea midline Respiratory/Chest: lungs clear, normal breath sounds, no respiratory distress Cardiovascular: regular rate, rhythm, no murmur Abdomen / GI: normal bowel sounds, non tender Extremities: + pertinent finding (Right knee: Decreased ROM and strength secondary to pain. Tender at the medial and lateral joint spaces. Crepitation with PROM and AROM. + swelling and effusion.) Neurologic/Psych: no motor/sensory deficits, alert, oriented x 3 Diagnosis Right knee osteoarthritis Plan of Treatment Recommend a right TKA. All potential risks, benefits, complications, alternatives, and rehab have been discussed with the patient and she wishes to proceed. She will be scheduled for 02.13.17 with plans for ASA 81 mg BID for 30 days for DVT prophylaxis.
[~2017-02-13] VITALS: Ht 160 cm; Wt 110.8 kg
[2017-02-13] VITALS (8 sets, daily range): BP systolic 91–126; BP diastolic 55–67; PULSE 60–75; TEMP 36.5–37; O2SAT 93–97; Ht 160 cm; Wt 110.8 kg
[~2017-02-13 05:09] MED LIST changes: +ACET-1256 PO; -ACETAMINOPHEN 500 MG TAB PO SCH; -AMOX500C3 PO; -ASPI-435 PO; +ASPI81TA28 PO; +CALCCAP4 PO; -CEFAZOLIN 2000 MG/60 ML D5W 60 ML IV SCH; +CHOL100040 PO; -CeleBREX 200 MG CAP PO SCH; -DEXAMETHASONE 4 MG TAB PO SCH; -FAMOTIDINE 20 MG TAB PO SCH; +FERR1TAB13 PO; -GABAPENTIN 300 MG CAP PO SCH; +GLUC1CAP35 PO; -LACTATED RINGER'S 1000ML IV SCH; -LACTATED RINGER'S 500 ML IV SCH; -METOCLOPRAMIDE HCL 10 MG TAB PO SCH; +MULT-506 PO; +OMEG10007 PO; -ROPIVACAINE 5MG/ML 30 ML 150 MG, BUPIVACAINE/EPINEPHR 0.5% MPF 30 ML, KETOROLAC TROMETH... INFIL SCH; -[UNRECOGNIZED DRUG - REMARK] PO
[2017-02-13] MEDS ORDERED: METOCLOPRAMIDE HCL 10 MG TAB PO SCH (06:00)
[2017-02-13] MEDS ORDERED: LACTATED RINGER'S 1000ML 1,000 ML IV SCH (06:00)
[2017-02-13] MEDS ORDERED: CeleBREX 200 MG CAP PO SCH (06:00)
[2017-02-13] MEDS ORDERED: DEXAMETHASONE 4 MG TAB PO SCH (06:00)
[2017-02-13] MEDS ORDERED: LACTATED RINGER'S 1000ML 500 ML IV ONE (06:00)
[2017-02-13] MEDS ORDERED: FAMOTIDINE 20 MG TAB PO SCH (06:00)
[2017-02-13] MEDS ORDERED: LACTATED RINGER'S 1000ML IV SCH (06:00)
[2017-02-13] MEDS ORDERED: CEFAZOLIN 2000 MG/60 ML D5W 60 ML IV SCH (06:00)
[2017-02-13] MEDS ORDERED: GABAPENTIN 300 MG CAP PO SCH (06:00)
[2017-02-13] MEDS ORDERED: OXYCODONE HCL 10 MG TABCR (OXYCONTIN) PO SCH (06:00)
[2017-02-13] MEDS ORDERED: ACETAMINOPHEN 500 MG TAB PO SCH (06:00)
[2017-02-13] MEDS ORDERED: ROPIVACAINE 5MG/ML 30 ML 150 MG, BUPIVACAINE/EPINEPHR 0.5% MPF 30 ML, KETOROLAC TROMETH... INFIL SCH ×7 (06:00)
[2017-02-13] MEDS ORDERED: BUPIVACAINE 0.5 % 5 MG/1 ML PF 10ML VIAL ONE (06:19)
[2017-02-13] MEDS ORDERED: ROPIVACAINE 0.5% 5 MG/ML 30 ML VIAL ONE (06:20)
[2017-02-13] MEDS ORDERED: BUPIVACAINE/EPINEPHRINE 0.5% MPF 1:200,000 30 ML VIAL ONE (06:59)
[2017-02-13] MEDS ORDERED: BACITRACIN 50000 UNIT VIAL ONE (07:00)
[2017-02-13] MEDS ORDERED: ORTHO JOINT ANESTHETIC ONE (07:00)
[2017-02-13] MEDS ORDERED: POVIDONE-IODINE OP SOLN 30 ML BTL ONE (07:00)
[2017-02-13] MEDS ORDERED: FENTANYL CITRATE INJ 50 MCG/1 ML 2 ML VIAL ONE ×2 (07:01→08:33)
[2017-02-13] MEDS ORDERED: MIDAZOLAM HCL 1 MG/ML 2ML VIAL ONE (07:01)
[2017-02-13] MEDS ORDERED: NURSING VERBAL MED ORDER STA (07:24)
[2017-02-13] MEDS: TRANEXAMIC ACID INJ 1,000 MG in SODIUM CHLORIDE 0.9% 100ML 100 ML IV SCH ×2 (08:00→09:15)
[2017-02-13] MEDS ORDERED: TRANEXAMIC ACID INJ 1,000 MG in SODIUM CHLORIDE 0.9% 100ML 100 ML IV SCH ×2 (08:00→16:00)
[2017-02-13] MEDS ORDERED: ONDANSETRON INJ 2 MG/ML 2 ML VIAL IV PRN ×2 (08:15→10:15)
[2017-02-13] MEDS ORDERED: ATROPINE SULFATE 0.1 MG/ML 5ML SYR IV PRN (08:15)
[2017-02-13] MEDS ORDERED: EpHEDrine SULFATE INJ 50 MG/ML AMP IV PRN (08:15)
[2017-02-13] MEDS ORDERED: HYDROmorphone INJ 2 MG/ML SYR/VIAL IV PRN (08:15)
[2017-02-13] MEDS ORDERED: PHENYLEPHRINE 100MCG/ML 5ML SYR IV PRN (08:15)
[2017-02-13] MEDS ORDERED: PROPOFOL IV EMULSION 10 MG/ML 20 ML VIAL IV ONE (08:33)
[2017-02-13] MEDS ORDERED: LIDOCAINE HCL 2% 2 ML VIAL (20MG/ML) ONE (08:33)
[2017-02-13] MEDS ORDERED: ONDANSETRON INJ 2 MG/ML 2 ML VIAL ONE (08:33)
[2017-02-13] MEDS ORDERED: DEXAMETHASONE SOD INJ 4 MG/ML VIAL ONE (08:33)
--- NOTE | 2017-02-13 10:06 | [facility] Post Operative Brief Note ---
Immediate Operative Summary Operative Date Feb 13, 2017. Pre-Operative Diagnosis Right Knee Degenerative Joint Disease; Genu Valgum; Flexion Contracture; Osteoarthritis Post-Operative Diagnosis Right Knee Degenerative Joint Disease; Genu Valgum; Flexion Contracture; Osteoarthritis Procedure(s) Performed Right Total Knee Arthroplasty - Cemented; Acosta and Nephew MRI matched Journey2; F6,T5,Poly 12mm, Patella 32mm Surgeon Dr. San Health Information Systems Technician Surgeon(s) Lev Singleton PA-C Estimated Blood Loss 15mL Findings See dict Specimens A: Right knee bone and tissue Drains HV x 2 Anesthesia GLMA w/ Adductor canal and intraarticular local Complication(s) None Disposition Recovery Room / PACU
[2017-02-13] MEDS ORDERED: SOD PHOSPHATE/SOD BIPHOSPHATE ENEMA 132 ML BTL PR PRN (10:15)
[2017-02-13] MEDS ORDERED: SILVER SULFADIAZINE 1% CR 50 GM JAR EXT PRN (10:15)
[2017-02-13] MEDS ORDERED: OXYCODONE HCL IR 5 MG TAB (IMMEDIATE RELEASE) PO PRN (10:15)
[2017-02-13] MEDS ORDERED: ALUMINUM/MAGNESIUM/SIMETH (MAALOX MAX) 30 ML UDC PO PRN (10:15)
[2017-02-13] MEDS ORDERED: BISACODYL 10 MG SUPP PR PRN (10:15)
[2017-02-13] MEDS ORDERED: ZOLPIDEM TARTRATE 5 MG TAB PO PRN (10:15)
[2017-02-13] MEDS ORDERED: MoRPHine SULFATE 2 MG/ML CARP IV PRN (10:15)
[2017-02-13] MEDS ORDERED: MAGNESIUM HYDROXIDE SUSP 30 ML UDC PO PRN (10:15)
--- NOTE | 2017-02-13 10:28 | OPERATIVE REPORT ---
DATE OF OPERATION: 02/13/2017 PREOPERATIVE DIAGNOSES: 1. Right knee degenerative joint disease. 2. Flexion contraction. 3. Genu valgum. 4. Osteoarthritis. POSTOPERATIVE DIAGNOSES: Same. PROCEDURE: Right total knee arthroplasty using a Acosta and Nephew MRI matched Journey II knee replacement with size 6 femur, size 5 tibia, 12-mm polyethylene posterior stabilized component and the 32-mm patellar component. SURGEON: Dr. Dimas San. GENETIC TECHNOLOGIST: Lev Alvarado PA-C, who was present for patient positioning, sterile prep and drape, management of retractors and instruments. He was present through the critical portions of the case including wound closure, application of sterile dressing and transport of the patient to recovery. ANESTHESIA: General LMA with adductor canal block and intraarticular local. SPECIMENS: Bone and tissue from the knee. DRAINS: Hemovac x2. COMPLICATIONS: None. BLOOD LOSS: 15 mL. PERTINENT HISTORY: This is a 71-year-old female who has severe chronic and debilitating right knee pain and deformity. She attempted conservative management and failed anti-inflammatories, physical therapy, home exercises, shoewear modification, use of a brace, use of an assistive device, and intraarticular steroid and hyaluronic acid injections. She had radiographic evidence of marginal osteophytes, subchondral sclerosis, subchondral cysts and loss of joint space. The patient was scheduled for surgery as indicated. DESCRIPTION OF PROCEDURE: The patient was taken to the Operative Suite and placed supine on the operating table after spinal epidural was initiated. Next, tourniquet was placed high on the right thigh over cast padding and the patient was sedated. The right lower extremity was then sterilely prepped and draped in the usual fashion. It was elevated and exsanguinated with an Esmarch bandage and tourniquet inflated to 325 mmHg. Next, a 10-blade scalpel incision was made along the anterior midline of the right knee with incision deep through the subcutaneous tissue. Meticulous hemostasis was utilized with electrocautery. Full thickness skin flaps were developed both medially and laterally and 10-blade scalpel was used to make a median parapatellar incision in the extensor. The patella was everted and soft tissue releases were performed. Huertas elevator was placed from the posterior aspect of the capsule releasing any contracture. Next, the patella was everted and resurfaced using a sagittal saw and orthogonal cuts. After caliper measured 23 mm, residual patella was approximately 14 mm and 32 mm button trial was placed and then drilled. Next, the appropriate retractors were placed and the femoral patient matched cutting block was pinned to the distal aspect of the femur. The distal femoral cut was made and pinned with pins and the distal femoral cutting guide was removed. The 4-in-1 cutting block was then pinned in place and anterior, posterior, anterior chamfer, and posterior chamfer cuts were made. Block and bone fragments were then removed followed by exposure of the proximal tibia. Sharp Hohmann was used to place just posterior to the tibia to protract it. Medial and lateral sharp Hohmann's were placed to protect the soft tissue and the tibial cutting block was then pinned in place. Tibial alignment bahman was utilized to confirm alignment and the proximal tibia was then cut made with sagittal saw. Fragment was removed. The Size 5 tibial trial was pinned in place and circumferential proximal release was performed with electrocautery around the proximal tibia. Next, the femoral trial was placed within appropriate medial and lateral alignment and then the cutting block was then put into place. It was reamed and box cut was performed. Excess debris was removed from the femoral notch. The insert was placed into the distal aspect of the femur. Trial poly Size 12 mm was placed in the proximal tibia. The knee was reduced. Trial poly Size 32 mm was placed in the patella. The knee was reduced. Excellent alignment and range of motion was achieved with correction of the genu varum and flexion contracture was achieved. Of note, +2 distal femoral cut was performed as a result of her flexion contracture prior to placement of the 4-in-1 cutting block. Next, all components were removed. The Orthomix was injected into the posterior capsule and anterior aspect of the capsule. Next, the wound was lavaged with pulsatile lavage and all surfaces were suctioned and dried. Palacos-G cement was placed in the distal femur, proximal tibia, patella, and then a small amount was placed in the canal of the tibia. Final implants were impacted into place in a stable fashion. Excess cement was removed from the joint. The patellar button was cemented and clamped in place. Dilute betadine solution was used to soak the knee. After 2 minutes and sufficient cement curing time elapsed a 10-Kazakh double lumen Hemovac drain was placed in the anterolateral aspect of the knee. The extensor mechanism was closed using interrupted #1 Vicryl. The dermis was closed using buried interrupted 2-0 Vicryl. The skin was closed with skin nabil. Sterile compressive dressing from the toes to the groin was applied. The tourniquet was released. The patient was awakened and taken to the Recovery Room in stable condition. I attest to the content of the Intraoperative Record and any orders documented therein. Any exceptions are noted below. EDELMIRA
--- NOTE | 2017-02-13 10:44 | Anesthesiology Progress Note ---
Anesthesia Post Op Note Date & Time Feb 13, 2017 at 10:44 Vital Signs Pain Intensity: 0 Vital Signs Past 12 Hours Date Time Temp Pulse Resp B/P (MAP) Pulse Ox O2 Delivery O2 Flow Rate FiO2 02/13/17 10:35 78 14 123/70 92 Nasal Cannula 4 02/13/17 10:25 81 17 129/75 94 Oxymask 10 02/13/17 10:15 86 14 130/65 92 Oxymask 10 02/13/17 10:05 37.2 99 16 126/64 93 Oxymask 10 02/13/17 05:54 36.5 72 20 126/61 93 Room Air Notes Mental Status: alert / awake / arousable, participated in evaluation Pt Amnestic to Procedure: Yes Nausea / Vomiting: adequately controlled Pain: adequately controlled Airway Patency, RR, SpO2: stable & adequate BP & HR: stable & adequate Hydration State: stable & adequate Anesthetic Complications: no major complications apparent
--- NOTE | 2017-02-13 10:45 | DIAGNOSTIC IMAGING REPORT ---
R KNEE 1 OR 2 VIEWS ROUTINE CLINICAL HISTORY: Postop examination COMPARISON: None. DISCUSSION: There are postsurgical changes of a total right knee arthroplasty and patellar resurfacing. The femoral and tibial components appear well seated. Overlying skin nabil and surgical drains are evident. There is air within soft tissues consistent with recent surgery. IMPRESSION: Postsurgical changes of a total right knee arthroplasty. Electronically signed by: Sabino Medel M.D. 02/13/2017 10:44 AM Dictated Date/Time: 02/13/2017 10:43 AM
[2017-02-13] MEDS: D5W AND 1/2NSS + 20MEQ KCL 1,000 ML IV SCH ×2 (11:46→20:33)
[2017-02-13] MEDS: KETOROLAC TROMETHAMINE 15 MG/ML VIAL IV. SCH ×2 (13:15→17:51)
[2017-02-13] MEDS: ACETAMINOPHEN 500 MG TAB PO SCH ×2 (13:45→22:38)
[2017-02-13] MEDS: CEFAZOLIN IV 2,000 MG in DEXTROSE 5% 50ML 50 ML IV SCH (16:13)
[2017-02-13] MEDS: FERROUS SULFATE 325 MG TAB PO SCH (17:50)
[2017-02-13] MEDS: ASPIRIN 81 MG ECTAB PO SCH (20:31)
[2017-02-13] MEDS: DOCUSATE SODIUM 100 MG CAP PO SCH (20:31)
[2017-02-13] MEDS: RANITIDINE HCL 150 MG TAB PO SCH (20:32)
[2017-02-13] MEDS: EZETIMIBE 10MG TAB PO SCH (20:32)
[2017-02-13] MEDS: SENNA 8.6 MG TAB PO SCH (20:32)
[2017-02-13] MEDS: OMEGA-3 (PURIFIED FISH OIL) 1 GM CAP PO SCH (20:33)
[2017-02-13] MEDS: OXYCODONE HCL 10 MG TABCR (OXYCONTIN) PO SCH (20:37)
[2017-02-13] MEDS ORDERED: GLUCOSAMINE CHONDROITIN VIT C PO SCH (21:00)
[2017-02-14] MEDS: CEFAZOLIN IV 2,000 MG in DEXTROSE 5% 50ML 50 ML IV SCH (00:07)
[2017-02-14] MEDS: KETOROLAC TROMETHAMINE 15 MG/ML VIAL IV. SCH ×5 (00:07→23:30)
[2017-02-14 03:44] VITALS: BP 99/60; PULSE 56; TEMP 36.5; O2SAT 95
[2017-02-14] MEDS: ACETAMINOPHEN 500 MG TAB PO SCH ×3 (05:54→21:15)
[2017-02-14 06:18] LABS: HEMATOCRIT 33.2 % (37-47); MEAN CELL VOLUME 90.2 fL (80-100); MEAN CORPUSCULAR HEMOGLOBIN 29.1 pg (25-34); MEAN CORPUSCULAR HGB CONC 32.2 g/dl (32-36); MEAN PLATELET VOLUME 9.5 fL (7.4-10.4); PLATELET COUNT 207 K/uL (130-400); RED BLOOD COUNT 3.68 M/uL (4.2-5.4); WHITE BLOOD COUNT 12.93 K/uL (4.8-10.8)
[2017-02-14 06:45] LABS: BUN/CREATININE RATIO 17.4 (10-20); CALCIUM 8.2 mg/dl (8.5-10.1); CREATININE 0.68 mg/dl (0.60-1.20); POTASSIUM 4.4 mmol/L (3.5-5.1)
[2017-02-14] MEDS ORDERED: DEXAMETHASONE INJ 10 MG in SYRINGE 0 ML IV ONE (07:30)
[2017-02-14 07:35] VITALS: BP 102/64; PULSE 60; TEMP 36.9; O2SAT 95
[2017-02-14] MEDS: D5W AND 1/2NSS + 20MEQ KCL 1,000 ML IV SCH (07:51)
[2017-02-14] MEDS: MULTIVITAMIN TAB PO SCH ×2 (07:51→07:57)
[2017-02-14] MEDS: OMEGA-3 (PURIFIED FISH OIL) 1 GM CAP PO SCH ×2 (07:52→21:14)
[2017-02-14] MEDS: CALCIUM 600MG + VIT D 400 IU TAB PO SCH (07:52)
[2017-02-14] MEDS: RANITIDINE HCL 150 MG TAB PO SCH ×2 (07:52→21:15)
[2017-02-14] MEDS: ASPIRIN 81 MG ECTAB PO SCH ×2 (07:52→21:15)
[2017-02-14] MEDS: OXYCODONE HCL 10 MG TABCR (OXYCONTIN) PO SCH ×2 (07:56→21:14)
[2017-02-14] MEDS: DOCUSATE SODIUM 100 MG CAP PO SCH ×2 (07:57→21:15)
--- NOTE | 2017-02-14 08:05 | Orthopedic Progress Note ---
Orthopedic Progress Note Date of Service Feb 14, 2017. Subjective Post OP Day: 1 Reports: feeling well Objective N/V intact, dressing C/D/I (Hemovac in place), toes mobile Date Time Temp Pulse Resp B/P (MAP) Pulse Ox O2 Delivery O2 Flow Rate FiO2 02/14/17 07:35 36.9 60 18 102/64 (77) 95 Room Air 02/14/17 03:44 36.5 56 16 99/60 (73) 95 Room Air 02/13/17 23:07 36.5 60 16 91/55 (67) 94 Room Air 02/13/17 19:30 Room Air 02/13/17 19:08 36.7 64 17 100/58 (72) 97 Room Air 02/13/17 15:35 37.0 61 18 104/62 (76) 93 Room Air 02/13/17 15:25 Room Air 02/13/17 13:55 68 16 107/57 (74) 95 Nasal Cannula 4.0 02/13/17 12:55 75 17 108/63 (78) 97 2.0 02/13/17 11:50 66 16 108/65 (79) 96 Nasal Cannula 4.0 02/13/17 11:25 69 16 126/67 (86) 95 Nasal Cannula 4.0 02/13/17 10:55 Nasal Cannula 4.0 02/13/17 10:55 95 Nasal Cannula 4.0 02/13/17 10:45 36.4 75 14 118/65 92 Nasal Cannula 4 02/13/17 10:35 78 14 123/70 92 Nasal Cannula 4 02/13/17 10:25 81 17 129/75 94 Oxymask 10 02/13/17 10:15 86 14 130/65 92 Oxymask 10 02/13/17 10:05 37.2 99 16 126/64 93 Oxymask 10 Laboratory Results 24 Hours: Test 02/14/17 05:31 Hematocrit 33.2 % Hemoglobin 10.7 g/dL Assessment & Plan Assessment: 71 yo female stable POD #1 s/p right TKA Plan: 1. Med management 2. DVT prophylaxis- ASA, SCDs 3. PT/OT 4. D/C planning- home w/ HH
[2017-02-14 10:58] VITALS: BP 122/72; PULSE 67; TEMP 37; O2SAT 95
[2017-02-14 14:34] VITALS: BP 122/72; PULSE 67; O2SAT 97
[2017-02-14 15:18] VITALS: BP 129/74; PULSE 61; TEMP 36.9; O2SAT 94
[2017-02-14] MEDS: FERROUS SULFATE 325 MG TAB PO SCH (17:54)
[2017-02-14] MEDS: EZETIMIBE 10MG TAB PO SCH (21:14)
[2017-02-14] MEDS: SENNA 8.6 MG TAB PO SCH (21:15)
[2017-02-14 23:33] VITALS: BP 139/80; PULSE 71; TEMP 36.7; O2SAT 92
[2017-02-15] MEDS: KETOROLAC TROMETHAMINE 15 MG/ML VIAL IV. SCH (05:30)
[2017-02-15] MEDS: ACETAMINOPHEN 500 MG TAB PO SCH (05:31)
[2017-02-15 07:13] VITALS: BP 104/65; PULSE 67; TEMP 37; O2SAT 92
[2017-02-15] MEDS: ASPIRIN 81 MG ECTAB PO SCH (08:04)
[2017-02-15] MEDS: DOCUSATE SODIUM 100 MG CAP PO SCH (08:04)
[2017-02-15] MEDS: OXYCODONE HCL 10 MG TABCR (OXYCONTIN) PO SCH (08:04)
[2017-02-15] MEDS: OMEGA-3 (PURIFIED FISH OIL) 1 GM CAP PO SCH (08:04)
[2017-02-15] MEDS: MULTIVITAMIN TAB PO SCH ×2 (08:04→08:06)
[2017-02-15] MEDS: CALCIUM 600MG + VIT D 400 IU TAB PO SCH (08:05)
[2017-02-15] MEDS: RANITIDINE HCL 150 MG TAB PO SCH (08:05)
--- NOTE | 2017-02-15 08:15 | Orthopedic Progress Note ---
Orthopedic Progress Note Date of Service Feb 15, 2017. Subjective Post OP Day: 2 Reports: feeling well Objective N/V intact, dressing C/D/I, toes mobile Date Time Temp Pulse Resp B/P (MAP) Pulse Ox O2 Delivery O2 Flow Rate FiO2 02/15/17 07:13 37.0 67 17 104/65 (78) 92 Room Air 02/14/17 23:33 36.7 71 16 139/80 (99) 92 Room Air 02/14/17 23:30 Room Air 02/14/17 15:20 Room Air 02/14/17 15:18 36.9 61 17 129/74 (92) 94 Room Air 02/14/17 14:34 67 97 02/14/17 10:58 37.0 67 18 122/72 (89) 95 Room Air Assessment & Plan Assessment: 71 yo female stable POD #2 s/p right TKA Plan: 1. Med management 2. DVT prophylaxis- ASA, SCDs 3. PT/OT 4. D/C planning- home w/ HH
[2017-02-15] MEDS ORDERED: ONDA8TAB12 PO (08:18)
[2017-02-15] MEDS ORDERED: ASPEC81 PO (08:18)
[2017-02-15] MEDS ORDERED: RXC5 PO (08:18)
[2017-02-15] MEDS ORDERED: OXYSR10 PO (08:18)
[2017-02-15] MEDS ORDERED: CLB200 PO (08:18)
[2017-02-15] MEDS ORDERED: ACET-1256 PO (08:18)
--- NOTE | 2017-02-15 08:19 | Discharge Instructions ---
Discharge Instructions Date of Service Feb 15, 2017. Admission Reason for Admission: Right Knee Osteoarthritis Discharge Discharge Diagnosis / Problem: Right knee arthritis Discharge Goals Goal(s): Decrease discomfort, Improve function Activity Recommendations Activity Limitations: as noted below Weightbearing Status: Right weightbearing (as tolerated) . Instructions / Follow-Up Instructions / Follow-Up ACTIVITY RECOMMENDATIONS: SELF CARE INSTRUCTIONS AFTER TOTAL KNEE REPLACEMENT A. You may need to continue a physical therapy program after discharge from the hospital. There are several options available to you. Your doctor will assist you in selecting the best one for you. 1. An out-patient facility 2 to 3 times a week for therapy or home therapy. 2. Continue working on all exercises taught to you in the hospital. Your goals should be to increase bending of your knee to 90 degrees and beyond and to fully straighten your knee. B. You may progress at your own pace from walking with a walker or crutches to a cane; then to no assistive devices. C. Make walking a part of your daily routine. Be up as much as comfortable with rest periods throughout the day. Rest with leg elevation is very important. Use the ice wrap frequently for the first 3-4 weeks. D. There are no restrictions on activities. You may ride in a car, shop, participate in caregiver services home and all social activities. E. Wear the long elastic stockings (PRINCESS hose) 20 hours a day for 2 weeks after surgery. They can be removed several times a day for laundering and for a bath. F. You may shower, no tub baths until cleared by your doctor. SPECIAL CARE INSTRUCTIONS: VERY IMPORTANT TO READ AND REVIEW A. There are a few signs you need to watch for after you are home. Call [facility] if you notice any of the followin. Increased severe knee pain. Some pain is expected especially when you exercise. 2. Increased swelling in your leg or knee; pain or swelling of the calf muscle in either lower leg. 3. Any fluid drainage from the incision. 4. Shortness of breath or chest pain. B. Please call [facility] at if you have any concerns or questions about your operation or recovery. The doctor or his nurse will return your call promptly. C. You must take antibiotics before dental work, bladder, bowel or other surgery. Your doctor will provide you with a permanent care to carry describing this precaution. IMPORTANT: * REMEMBER TO TAKE ASPIRIN, 81 MG, TWICE DAILY FOR 4 WEEKS UNLESS OTHERWISE DIRECTED. THIS IS YOUR BLOOD THINNER. * HIGH RISK PATIENTS MAY BE PRESCRIBED A STRONGER BLOOD THINNER. THIS WILL BE PROVIDED AT DISCHARGE. * CALL IF INCREASED PAIN, REDNESS, DRAINAGE OR FEVER GREATER THAT 101. * WEAR PRINCESS HOSE 20 HOURS PER DAY FOR 2 WEEKS. Silverlon- This is a large adhesive bandage that contains silver ions. This helps your incision heal by fighting off bacteria and protecting it from the outside environment. You are permitted to shower with this dressing. This will remain on your incision for 7 days and then should be removed. Some visible blood or drainage through the dressing window is normal. If there is significant drainage or leaking noted before the 7 days notify your doctor's office immediately. Once removed, keep incision clean and dry. If there is any drainage or redness noted, please call your surgeon. FOLLOW UP VISIT: If appointment is not already scheduled: Please call [facility] to make a follow-up appointment for 2 weeks after your surgery at . Current Hospital Diet Patient's current hospital diet: Regular Diet Discharge Diet Recommended Diet: Regular Diet Procedures Procedures Performed: Right Total Knee Arthroplasty - Cemented; [facility] MRI matched [facility]; F6,T5,Poly 12mm, Patella 32mm Pending Studies Studies pending at discharge: no Laboratory Results Hemoglobin A1c Test 12/29/16 08:50 Range/Units Estimated Average Glucose 126 mg/dl Hemoglobin A1c 6.0 H 4.5-5.6 % Medical Emergencies . Who to Call and When: Medical Emergencies: If at any time you feel your situation is an emergency, please call 911 immediately. . Non-Emergent Contact Non-Emergency issues call your: Surgeon Call Non-Emergent contact if: temperature is above 101.5, your pain is not controlled, wound has increased drainage, wound has increased redness . "Provider Documentation" section prepared by Harish Yu PA-C. . VTE Core Measure Inpt VTE Proph given/why not?: Other Anticoagulation (ASA 81mg bid), T.E.D. Stockings, SCD's [place] Drug Monitoring Program Search Results: patient reviewed within database, no issues identified
[2017-02-15 09:35] VITALS: BP 104/65; PULSE 67; TEMP 37; O2SAT 92
[2017-02-15] MEDS ORDERED: CeleBREX 200 MG CAP PO SCH (21:00)
--- NOTE | 2017-02-19 21:41 | Discharge Summary ---
Orthopedic Discharge Summary Admission Date/Reason Feb 13, 2017 at 07:15 Right Knee Osteoarthritis. Discharge Date/Disposition Feb 15, 2017 Home Diagnosis Principal Diagnosis: right knee osteoarthritis Procedure(s) Performed right TKA Medication Reconciliation New Medications: Ondansetron Hcl (Zofran) 8 Mg Tab 8 MG PO Q8 PRN for Nausea or Vomiting, #20 TAB Aspirin (Aspirin EC Low Dose) 81 Mg Ectab 81 MG PO BID for 30 Days Celecoxib (Celebrex) 200 Mg Cap 200 MG PO BID, #60 CAP Oxycodone HCl (Oxycontin) 10 Mg Tabcr 10 MG PO Q12, #20 Oxycodone HCl (Oxycodone HCl) 5 Mg Tab 5-10 MG PO Q4-6 PRN for Pain, #60 TAB Continued Medications: Acetaminophen (Tylenol) 500 Mg Tab 1000 MG PO Q8 for 14 Days, TAB (This prescription has been renewed) Calcium Carbonate-Cholecalcife (Calcium/Vitamin D3 600-400 mg-Unit) 1 Cap Cap 1 CAP PO QAM Cholecalciferol (Vitamin D-1000) Unknown Strength Tab Unknown Dose PO BID Ezetimibe (Zetia) 10 Mg Tab 10 MG PO QPM, TAB Ferrous Sulfate (Kp Ferrous Sulfate) 325 Mg Tab 1 TAB PO 5PM for 30 Days, TAB 3 Refills Fish Oil ([place]-3) 1 Ea Cap 1 CAP PO BID, CAP Glatiramer Acetate (Copaxone) 40 Mg/Ml Inj 1 DOSE SQ 3XWK MON, WED AND FRI Urilndritpj-Pjushndplth-Kxo C- (Glucosamine Chondroitin) 1 Cap Cap 1 CAP PO BID DOSE LISTED ON PATIENT MED LIST READS 250-200MG Multivitamin (Multivitamin) Tab 1 TAB PO QAM, TAB Ranitidine Hcl (Zantac) 150 Mg Tab 150 MG PO BID, TAB Discontinued Medications: Aspirin (Aspirin Ec) 81 Mg Tab 81 MG PO QAM Naproxen (Naprosyn) 500 Mg Tab 375 MG PO BID, TAB Admission Physical Exam As per Admitting History & Physical. Hospital Course The patient was admitted on 02.13.17 and underwent a right TKA. She progressed well throughout POD #1 and #2 as far as PT and pain control. She was then d/c'd home on POD #2, 02.15.17. Discharge Instructions Please refer to the electronic Patient Visit Report (Discharge Instructions) for additional information. ACTIVITY RECOMMENDATIONS: SELF CARE INSTRUCTIONS AFTER TOTAL KNEE REPLACEMENT A. You may need to continue a physical therapy program after discharge from the hospital. There are several options available to you. Your doctor will assist you in selecting the best one for you. 1. An out-patient facility 2 to 3 times a week for therapy or home therapy. 2. Continue working on all exercises taught to you in the hospital. Your goals should be to increase bending of your knee to 90 degrees and beyond and to fully straighten your knee. B. You may progress at your own pace from walking with a walker or crutches to a cane; then to no assistive devices. C. Make walking a part of your daily routine. Be up as much as comfortable with rest periods throughout the day. Rest with leg elevation is very important. Use the ice wrap frequently for the first 3-4 weeks. D. There are no restrictions on activities. You may ride in a car, shop, participate in [employer] and all social activities. E. Wear the long elastic stockings (PRINCESS hose) 20 hours a day for one month after surgery. They can be removed several times a day for laundering and for a bath. F. Silverlon- This is a large adhesive bandage that contains silver ions. This helps your incision heal by fighting off bacteria and protecting it from the outside environment. You are permitted to shower with this dressing. This will remain on your incision for 7 days and then should be removed. Some visible blood or drainage through the dressing window is normal. If there is significant drainage or leaking noted before the 7 days notify your doctor's office immediately. Once removed, keep incision clean and dry. If there is any drainage or redness noted, please call your surgeon. SPECIAL CARE INSTRUCTIONS: VERY IMPORTANT TO READ AND REVIEW A. Take Aspirin (blood thinning medications) as directed by your doctor. If on Coumadin, have a pro-time (blood test) drawn according to your doctor's instructions. This will tell the doctor how well the Coumadin is thinning your blood. B. There are a few signs you need to watch for after you are home. Call [facility] if you notice any of the followin. Increased severe knee pain. Some pain is expected especially when you exercise. 2. Increased swelling in your leg or knee; pain or swelling of the calf muscle in either lower leg. 3. Any fluid drainage from the incision. 4. Shortness of breath or chest pain. C. Please call [facility] at if you have any concerns or questions about your operation or recovery. The doctor or his nurse will return your call promptly. D. You must take antibiotics before dental work, bladder, bowel or other surgery. Your doctor will provide you with a permanent care to carry describing this precaution. * CALL IF INCREASED PAIN, REDNESS, DRAINAGE OR FEVER GREATER THAT 101 F. * WEAR PRINCESS HOSE 20 HOURS PER DAY FOR 4 WEEKS. FOLLOW UP VISIT: If appointment is not already scheduled: Please call [facility] to make a follow-up appointment for 2 weeks after your surgery to have nabil removed at .
== END 2017-02-15 11:10 | disposition home health service (06) | DRG 470 ==
LOC: C.ACU 05:09 → C.3E 07:15 → ENRESERV 10:35
PROVIDERS: ADMIT Orthopaedic Surgery Sports Medicine; ATTEND Orthopaedic Surgery Sports Medicine
PROC: 0SRC0J9 Replacement of Right Knee Joint with Synthetic Substitute, Cemented, Open Approach (ICD-10-PCS; principal; 2017-02-13 07:30)
DX: M17.11 Unilateral primary osteoarthritis, right knee (principal); M24.561 Contracture, right knee; M21.061 Valgus deformity, not elsewhere classified, right knee; Z79.82 Long term (current) use of aspirin; Z79.899 Other long term (current) drug therapy